=== PATIENT | male | born 1945 | race Caucasian/White ===

== ENCOUNTER 2018-10-26 06:28 | Day surgery (SDC) ==
[2018-10-26] MEDS: BETADINE OPTH PREP OP PRN ×2 (06:41→07:50)
[2018-10-26] MEDS: TETRACAINE 0.5% UNIT-DOSE OP PRN ×2 (06:41→07:50)
[2018-10-26] MEDS: CYCLOGYL 2% OPTH OP PRN ×3 (06:42→06:52)
[2018-10-26 07:05] VITALS: TEMP 98
[2018-10-26] MEDS ORDERED: ZOFRAN 4 MG/2 ML IVP ONE (07:06)
[2018-10-26] MEDS ORDERED: LIDOCAINE 1% 20 ML MDV ID STA (07:06)
[2018-10-26] MEDS ORDERED: SUBLIMAZE ONE (07:50)
[2018-10-26] MEDS ORDERED: DECADRON 4 MG/ML SDV ONE (07:50)
[2018-10-26] MEDS ORDERED: NARCAN ONE (07:50)
[2018-10-26] MEDS ORDERED: ZOFRAN 4 MG/2 ML ONE (07:50)
[2018-10-26] MEDS ORDERED: ROMAZICON IVP ONE (07:50)
[2018-10-26] MEDS ORDERED: PHENYLEPHRINE ONE (07:50)
[2018-10-26] MEDS ORDERED: VERSED ONE (07:50)
[2018-10-26] MEDS: DEX-MOXI-KETOR OPTH INJ 1/0.5/0.4 MG/ML IO ONE ×2 (07:58→08:01)
[2018-10-26] MEDS: BSS WITH EPINEPHRINE OP ONE ×2 (07:58→08:01)
[2018-10-26] MEDS: LIDOCAINE 1%/PHENYLEPHRINE 1.5% BSS (SURGERY) INTRAOCULA ONE ×2 (07:58→08:01)
[2018-10-26] MEDS ORDERED: MIOSTAT INTRAOCULA ONE (08:19)
[2018-10-26 13:51] VITALS: BP 130/64
== END 2018-10-26 09:10 | disposition home or self-care (01) ==
LOC: SURG 06:28
PROVIDERS: ATTEND Ophthalmology
DX: H25.812 Combined forms of age-related cataract, left eye (principal)
CPT/HCPCS: 36415; 80053; 83970; 84100; 85025